=== PATIENT | female | born 1970 | race Two or more races ===

== ENCOUNTER 2025-04-07 15:40 | Outpatient (CLI) | payer OTHER | END 2025-04-07 15:50 | disposition home or self-care (01) | LOC: RAD 15:40 | DX: M25.561 Pain in right knee (principal) ==

== ENCOUNTER 2025-05-29 14:36 | Emergency (ER) | payer OTHER ==
[~2025-05-29] VITALS: Ht 162.6 cm; Wt 87.1 kg
[2025-05-29] MEDS ORDERED: DIPHTH,PERTUSS(ACELL),TET VAC 0.5 ML VIAL IM ONE (17:30)
[2025-05-29] MEDS ORDERED: CEFTRIAXONE SODIUM 1,000 MG VIAL IM ONE (17:30)
[2025-05-29] MEDS ORDERED: AMOX-CLAV 875-1 EACH PO (17:41)
== END 2025-05-29 19:20 | disposition home or self-care (01) ==
LOC: ER 14:44
DX: S61.320A Laceration with foreign body of right index finger with damage to nail, initial encounter (principal); W18.39XA Other fall on same level, initial encounter; Y93.89 Activity, other specified; Y92.89 Other specified places as the place of occurrence of the external cause
CPT/HCPCS: 90471; 90714; J1670